=== PATIENT | male | born 1980 | race Caucasian/White ===

== ENCOUNTER → 2018-11-14 | Emergency (ER) | payer OTHER ==
[~2018-11-14] VITALS: Ht 175.3 cm; Wt 79.4 kg
[~2018-11-14] MED LIST: CEFADROXIL500 MG PO; MOTRIN800 MG PO
== END | disposition home or self-care (01) ==
LOC: ER 16:16
DX: S61.421A Laceration with foreign body of right hand, initial encounter (principal); W54.0XXA Bitten by dog, initial encounter; Y93.89 Activity, other specified; Y92.89 Other specified places as the place of occurrence of the external cause; Y99.8 Other external cause status

== ENCOUNTER 2021-03-17 23:07 | Emergency (ER) | payer OTHER ==
[~2021-03-17] VITALS: Ht 177.8 cm; Wt 86.2 kg
[2021-03-17] MEDS ORDERED: ADVIL (23:33)
[2021-03-18] MEDS ORDERED: CIPRO500 MG PO (01:19)
== END 2021-03-18 01:20 | disposition home or self-care (01) ==
LOC: ER 23:07
DX: S01.25XA Open bite of nose, initial encounter (principal); W54.0XXA Bitten by dog, initial encounter; Y93.89 Activity, other specified; Y92.018 Other place in single-family (private) house as the place of occurrence of the external cause; Y99.8 Other external cause status

== ENCOUNTER 2021-03-25 14:09 | Emergency (ER) | payer OTHER ==
[~2021-03-25] VITALS: Ht 177.8 cm; Wt 86.2 kg
[~2021-03-25 14:09] MED LIST changes: +ADVIL; +CIPRO500 MG PO
== END 2021-03-25 16:00 | disposition home or self-care (01) ==
LOC: ER 14:09
DX: Z48.02 Encounter for removal of sutures (principal)

== ENCOUNTER 2021-04-23 07:30 | Outpatient (CLI) | payer OTHER | END 2021-04-23 08:00 | disposition home or self-care (01) | LOC: PPH VACUNA 07:30 | PROVIDERS: ATTEND Emergency Medicine Pediatric Emergency Medicine | DX: Z23 Encounter for immunization (principal) ==

== ENCOUNTER 2023-09-03 16:21 | Outpatient (CLI) | payer OTHER | END 2023-09-03 16:30 | disposition home or self-care (01) | LOC: RAD 16:21 | DX: J20.9 Acute bronchitis, unspecified (principal); E78.9 Disorder of lipoprotein metabolism, unspecified; E03.9 Hypothyroidism, unspecified; E66.8 Other obesity; N52.9 Male erectile dysfunction, unspecified ==

== ENCOUNTER 2024-08-11 12:15 | Outpatient (CLI) | payer OTHER | END 2024-08-11 12:17 | disposition home or self-care (01) | LOC: RAD 12:15 | PROVIDERS: ATTEND Specialist | DX: J34.89 Other specified disorders of nose and nasal sinuses (principal); J01.31 Acute recurrent sphenoidal sinusitis; J34.2 Deviated nasal septum; R05.9 Cough, unspecified; D01.9 Carcinoma in situ of digestive organ, unspecified ==